=== PATIENT | female | born 1960 | race Caucasian/White ===

== ENCOUNTER 2023-09-28 18:45 | Emergency (ER) | payer OTHER ==
[~2023-09-28] VITALS: Ht 162.6 cm; Wt 90.0 kg
[~2023-09-28 18:45] MED LIST: ALPR1TAB PO; HYDR-4833 PO; INSUINJ49 SC; INSUPOW SC; LISI20TA56 PO; TEMA30CA PO; TOPI50TA53 PO
[2023-09-28 19:51] LABS: Basophils # (auto) 0 10 ^3/uL (0-0.2); Basophils % (auto) 0.5 % (0.0-2.0); Eosinophils # (auto) 0 10 ^3/uL (0-0.8); Eosinophils % (auto) 0.4 % (0.0-7.0); Hematocrit 42.1 % (36.0-46.0); Hemoglobin 13.5 g/dL (12.2-16.2); Lymphocytes # (auto) 2.6 10 ^3/uL (0.4-5.4); Lymphocytes % (auto) 34.5 % (10.0-50.0); Mean Corpuscular Hemoglobin 28.9 pg (28.0-32.0); Mean Corpuscular Hgb Conc. 32.1 g/dL (32.0-36.0); Mean Corpuscular Volume 90.1 fL (80.0-100.0); Monocytes # (auto) 0.5 10 ^3/uL (0-1.3); Neutrophils # (auto) 4.3 10 ^3/uL (1.6-8.6); Neutrophils % (auto) 57.6 % (37.0-80.0); Nucleated Red Blood Cells % 0.1 %; Red Blood Cells 4.68 10^6/uL (4.0-5.20); Red Cell Distribution Width 14.5 % (11.8-14.3); White Blood Cell 7.4 10^3/uL (4.4-10.8)
[2023-09-28 20:11] LABS: Alanine Aminotransferase 11 U/L (7-40); Alkaline Phosphatase 139 U/L (46-116); Anion Gap 9 (5-15); Aspartate Aminotransferase 19 U/L (13-40); BUN/Creatinine Ratio 13.5 (10.0-20.0); Bilirubin, Total 0.3 mg/dL (0.2-1.0); Blood Urea Nitrogen 17 mg/dL (9-23); Calcium 9.4 mg/dL (8.5-10.1); Carbon Dioxide 25 mmol/L (20-30); Chloride 99 mmol/L (98-107); Potassium 4.1 mmol/L (3.5-5.1); Sodium 133 mmol/L (136-145); Total Protein 6.4 g/dL (5.7-8.2)
[2023-09-28 20:13] LABS: Glucose 536 mg/dL (74-106)
[2023-09-28 23:47] VITALS: TEMP 97.8
[2023-09-29] MEDS: InsuLIN REG 1unit/0.01ml Soln (100units/ml) SC ONE (01:06)
[2023-09-29] MEDS: ACETAMINOPHEN 325 MG TAB PO ONE (01:06)
[2023-09-29 01:10] VITALS: BP 147/68; PULSE 69; RESP 16; O2SAT 99
== END 2023-09-29 01:15 | disposition home or self-care (01) ==
LOC: EDBD 18:45 → ER 18:45
DX: E11.65 Type 2 diabetes mellitus with hyperglycemia (principal); M25.512 Pain in left shoulder; I10 Essential (primary) hypertension; F41.9 Anxiety disorder, unspecified; F32.9 Major depressive disorder, single episode, unspecified; Z90.710 Acquired absence of both cervix and uterus; Z88.8 Allergy status to other drugs, medicaments and biological substances; Z79.899 Other long term (current) drug therapy; Z88.0 Allergy status to penicillin
CPT/HCPCS: 36415; 80053; 85025; 99283; J1815